=== PATIENT | female | born 1945 | race Caucasian/White ===

== ENCOUNTER 2017-04-09 10:47 | Emergency (ER) | payer MEDICARE ==
[2017-04-09 11:38] VITALS: BP 138/81
[2017-04-09] MEDS ORDERED: NAPROSYN500 MG PO (11:38)
== END 2017-04-09 12:00 | disposition home or self-care (01) ==
LOC: ED 10:47
DX: M76.9 Unspecified enthesopathy, lower limb, excluding foot (principal); M25.461 Effusion, right knee; X50.1XXA Overexertion from prolonged static or awkward postures, initial encounter; Y93.E5 Activity, floor mopping and cleaning; Y92.002 Bathroom of unspecified non-institutional (private) residence as the place of occurrence of the external cause